=== PATIENT | male | born 1990 | race Caucasian/White ===

== ENCOUNTER 2022-04-25 09:47 | Outpatient (CLI) | payer OTHER | END 2022-04-25 09:52 | disposition home or self-care (01) | LOC: PPH VACUNA 09:47 | PROVIDERS: ATTEND Emergency Medicine Pediatric Emergency Medicine | DX: Z23 Encounter for immunization (principal) ==

== ENCOUNTER 2023-02-08 08:13 | Emergency (ER) | payer OTHER ==
[~2023-02-08] VITALS: Ht 170.2 cm; Wt 106.1 kg
== END 2023-02-08 12:18 | disposition home or self-care (01) ==
LOC: ER 08:13
DX: B34.9 Viral infection, unspecified (principal); R53.81 Other malaise; Z20.822 Contact with and (suspected) exposure to COVID-19

== ENCOUNTER → 2023-04-25 | Outpatient (CLI) | payer OTHER | END | disposition home or self-care (01) | LOC: PPH VACUNA | PROVIDERS: ATTEND Emergency Medicine Pediatric Emergency Medicine | DX: Z23 Encounter for immunization (principal) ==